=== PATIENT | male | born 1980 | race Caucasian/White ===

== ENCOUNTER 2016-11-15 08:50 | Emergency (ER) | payer OTHER ==
[~2016-11-15] VITALS: Ht 175.3 cm; Wt 77.3 kg
[2016-11-15] MEDS ORDERED: LITH300C3 PO (08:54)
[2016-11-15 11:23] VITALS: BP 122/82
== END 2016-11-15 11:25 | disposition home or self-care (01) ==
LOC: EMS 08:55
DX: H10.89 Other conjunctivitis (principal); F31.9 Bipolar disorder, unspecified; I25.2 Old myocardial infarction; I25.10 Atherosclerotic heart disease of native coronary artery without angina pectoris; F17.210 Nicotine dependence, cigarettes, uncomplicated; Z95.5 Presence of coronary angioplasty implant and graft
CPT/HCPCS: 99283